=== PATIENT | female | born 1945 | race Caucasian/White ===

== ENCOUNTER 2021-04-06 06:08 | Observation (INO) ==
[~2021-04-06 06:08] MED LIST: Acetaminophen IV 1,000 MG/100 ML BAG IVPB ONE; Famotidine 20 MG/2 ML VIAL IVP ONE; Ringers Solution, Lactated 1,000 ML IVC ONE
[2021-04-06] MEDS ORDERED: Clindamycin 900 MG/50 ML 900 MG/50 ML IV.SOLN IVPB ONE (06:28)
[2021-04-06] MEDS ORDERED: *HR* Rocuronium Bromide 50 MG/5 ML VIAL ONE (06:42)
[2021-04-06] MEDS ORDERED: Lidocaine -MPF 2% 2 ML VIAL ONE (06:42)
[2021-04-06] MEDS ORDERED: *HR* Succinylcholine 200 MG/10 ML VIAL IVP ONE (06:42)
[2021-04-06] MEDS ORDERED: Lidocaine HCL 4 ML Topical Solution (Laryng-O-Jet Kit Sterile Pak) TP ONE (06:42)
[2021-04-06] MEDS ORDERED: Ondansetron 4 MG/2 ML VIAL ONE (06:42)
[2021-04-06] MEDS ORDERED: *HR* Midazolam HCl 2 MG/2 ML VIAL ONE (06:42)
[2021-04-06] MEDS ORDERED: *HR* FentaNYL (PF) 100 MCG/2 ML VIAL ONE (06:43)
[2021-04-06] MEDS ORDERED: *HR* Propofol 200 MG/20 ML VIAL IVP ONE (06:43)
[2021-04-06] MEDS ORDERED: CeFAZolin Syr 2,000MG/20 ML 2,000 MG/20 ML SYRINGE IVPB ONE ×2 (07:13→13:00)
[2021-04-06] MEDS ORDERED: Vancomycin 1,000 MG VIAL ONE ×3 (07:35→11:55)
[2021-04-06] MEDS ORDERED: *HR* Vasopressin 20 UNIT/ML VIAL ONE (07:38)
[2021-04-06] MEDS ORDERED: Albumin Human 5% 12.5 GM/250 ML IV.SOLN ONE (07:38)
[2021-04-06] MEDS ORDERED: ROPIVACAINE/PF/NS 0.25% 1 EACH SYRINGE INTRAART ONE (07:45)
[2021-04-06] MEDS ORDERED: Ropivacaine/PF 0.5% 30 ML VIAL ONE (07:45)
[2021-04-06] MEDS ORDERED: *HR* HYDROmorphone (PF) 1 MG/ML SYRINGE IVP PRN (07:56)
[2021-04-06] MEDS ORDERED: Naloxone 0.4 MG/ML INJ IVP PRN ×2 (07:56→15:07)
[2021-04-06] MEDS ORDERED: Nitroglycerin 0.4 MG TAB.SUBL SL PRN (07:56)
[2021-04-06] MEDS ORDERED: *HR* FentaNYL (PF) 100 MCG/2 ML VIAL IVP PRN (07:56)
[2021-04-06] MEDS ORDERED: Ondansetron 4 MG/2 ML VIAL IVP PRN ×2 (07:56→15:07)
[2021-04-06] MEDS ORDERED: Albuterol 2.5 MG/3 ML NEBULIZER IH PRN (07:56)
[2021-04-06] MEDS ORDERED: Povidone-Iodine 45 ML, Sodium Chloride IRRigation 1,000 ML IR ONE (08:15)
[2021-04-06] MEDS ORDERED: TOTAL JOINT MIXTURE (100ML) INTRAART ONE (08:15)
[2021-04-06] MEDS ORDERED: Tranexamic Acid 1,000 MG/10 ML VIAL ONE (08:43)
[2021-04-06] MEDS ORDERED: EPHEDrine 50 MG/ML VIAL ONE (08:47)
[2021-04-06] MEDS ORDERED: ceFAZolin 2,000 MG in 0.9 % Sodium Chloride 100 ML IVPB ONE (12:36)
[2021-04-06] MEDS ORDERED: Sennosides 8.6 MG TABLET PO PRN (15:07)
[2021-04-06] MEDS ORDERED: *HR* Promethazine 25 MG/ML VIAL IM PRN (15:07)
[2021-04-06] MEDS ORDERED: MOM Conc 10 ML UD.LIQ PO PRN (15:07)
[2021-04-06] MEDS ORDERED: Ringers Solution, Lactated 1,000 ML IVC SCH (15:15)
[2021-04-06] MEDS: Ascorbic Acid 500 MG TABLET PO SCH (15:21)
[2021-04-06] MEDS: Ketorolac 30 MG/ML VIAL IVP SCH ×2 (16:49→23:00)
[2021-04-06] MEDS: CeFAZolin 2 GM/120 ML BAG IVPB SCH (19:32)
[2021-04-07] MEDS: Ketorolac 30 MG/ML VIAL IVP SCH ×4 (05:08→23:21)
[2021-04-07] MEDS: CeFAZolin 2 GM/120 ML BAG IVPB SCH (05:09)
[2021-04-07 05:37] LABS: Basophils % 0.1 %; Hematocrit 32.2 % (35.3-44.9); Hemoglobin 10.4 g/dL (11.5-15.4); Immature Granulocytes % 0.4 % (0-4); Lymphocytes # 0.7 K/mcL (0.6-4.6); Lymphocytes % 6.7 %; Mean Corpuscular HGB Conc 32.3 g/dL (31.6-35.5); Mean Corpuscular Hemoglobin 28.1 pg (28.0-33.3); Mean Platelet Volume 9.4 fL (9.4-12.4); Monocytes # 0.8 K/mcL (0.0-1.3); Monocytes % 7.3 %; Platelet Count 243 K/mcL (140-400); Red Cell Distribution Width 13.5 % (11.5-14.5); Segmented Neutrophils % 85.5 %; White Blood Count 10.5 K/mcL (4.3-11.1)
[2021-04-07 05:59] LABS: Calcium 9.1 mg/dL (8.6-10.3); Potassium 3.9 mEq/L (3.5-5.1)
[2021-04-07] MEDS: Ascorbic Acid 500 MG TABLET PO SCH ×2 (07:21→17:39)
[2021-04-07] MEDS: Multivit/Ca/Min/Fe/FA 1 TAB TABLET PO SCH (07:21)
[2021-04-07] MEDS: Triamterene/HCTZ 75/50 mg TABLET PO SCH (11:13)
[2021-04-07] MEDS ORDERED: GI Cocktail 40 ML EACH PO ONE (13:58)
[2021-04-07] MEDS ORDERED: Nitroglycerin 0.4 MG TAB.SUBL SL PRN (16:40)
[2021-04-07] MEDS ORDERED: Perflutren Lipid Microsphere 1.3 ML in 0.9 % Sodium Chloride 8.7 ML IVP PRN (16:41)
[2021-04-07] MEDS: Aspirin Enteric Coated 81 MG Tablet PO SCH (17:39)
[2021-04-07] MEDS: Gabapentin 300 MG CAPSULE PO SCH (19:51)
[2021-04-08 02:58] LABS: Basophils % 0.4 %; Eosinophils # 0.1 K/mcL (0.0-0.6); Eosinophils % 0.9 %; Hematocrit 32.2 % (35.3-44.9); Hemoglobin 10.4 g/dL (11.5-15.4); Immature Granulocytes % 0.4 % (0-4); Lymphocytes # 1.6 K/mcL (0.6-4.6); Lymphocytes % 20.9 %; Mean Corpuscular HGB Conc 32.3 g/dL (31.6-35.5); Mean Corpuscular Hemoglobin 27.9 pg (28.0-33.3); Mean Corpuscular Volume 86.3 fL (83.0-100.0); Mean Platelet Volume 9.4 fL (9.4-12.4); Monocytes # 0.7 K/mcL (0.0-1.3); Monocytes % 8.9 %; Neutrophils # 5.2 K/mcL (1.6-8.9); Platelet Count 226 K/mcL (140-400); Red Blood Count 3.73 M/mcL (3.82-4.97); Red Cell Distribution Width 13.7 % (11.5-14.5); Segmented Neutrophils % 68.5 %; White Blood Count 7.6 K/mcL (4.3-11.1)
[2021-04-08 03:09] LABS: Chol/HDL Ratio 3.5 (0-4.9)
[2021-04-08 03:11] LABS: BUN/Creatinine Ratio 27 (6-26); Blood Urea Nitrogen 22 mg/dL (8-23); Calcium 9.2 mg/dL (8.6-10.3); Carbon Dioxide 26 mEq/L (23-29); Chloride 106 mEq/L (98-107); Glucose 99 mg/dL (70-105); Osmolality,Calculated 293 (280-300); Potassium 3.9 mEq/L (3.5-5.1); Sodium 140 mEq/L (136-145); eGFR For African Americans > 60 (> 60); eGFR For Non-African Americans > 60 (> 60)
[2021-04-08] MEDS: Ketorolac 30 MG/ML VIAL IVP SCH ×2 (05:50→13:02)
[2021-04-08] MEDS ORDERED: Isovue-370 500 ML BOTTLE IVP ONE (08:49)
[2021-04-08] MEDS: Multivit/Ca/Min/Fe/FA 1 TAB TABLET PO SCH (09:09)
[2021-04-08] MEDS: Aspirin Enteric Coated 81 MG Tablet PO SCH (09:10)
[2021-04-08] MEDS: Triamterene/HCTZ 75/50 mg TABLET PO SCH (09:10)
[2021-04-08] MEDS: Gabapentin 300 MG CAPSULE PO SCH (09:10)
[2021-04-08] MEDS: Ascorbic Acid 500 MG TABLET PO SCH (09:10)
[2021-04-08 15:44] VITALS: BP 115/75
== END 2021-04-08 17:07 | disposition home or self-care (01) ==
LOC: SAMDAY 06:08 → 3NENU 06:08
PROVIDERS: ADMIT Orthopaedic Surgery; ATTEND Orthopaedic Surgery